=== PATIENT | female | born 1990 | race Native Hawaiian/Other Pacific Islander ===

== ENCOUNTER 2018-08-27 17:52 | Emergency (ER) | payer OTHER ==
[2018-08-27] MEDS ORDERED: Lactated Ringer's 1,000 ML IV SCH (18:45)
[2018-08-27 18:50] VITALS: BMI 32.7
[2018-08-27 18:53] LABS: HEMOGLOBIN 12.2 g/dL (12.0-16.0); MEAN CELL VOLUME 84.2 fl (81.0-99.0); MEAN CORPUSCULAR HEMOGLOBIN 27.7 pg (27.0-31.0); MEAN CORPUSCULAR HGB CONC 32.9 g/dL (33.0-37.0); RBC 4.41 Mil/uL (3.80-5.20); RED CELL DISTRIBUTION WIDTH 13.9 % (11.5-14.5); WHITE BLOOD COUNT 13.2 K/uL (4.8-10.8)
[2018-08-27 19:04] LABS: ALB/GLOB RATIO 1.1 (1.0-2.1); ALBUMIN 3.9 g/dL (3.5-5.0); ALT/SGPT 16 U/L (9-52); AST/SGOT 20 U/L (14-36); BLOOD UREA NITROGEN 11 mg/dl (7-17); GFR NON-AFRICAN AMERICAN > 60
--- NOTE | 2018-08-27 21:11 | OBHP ---
Datetime: 08/27/2018 18:34 IP Adm Impression: , intrauterine IP Chief Complaint Other: Abd pain+ vomiting IP Admit Plan: Observation/Evaluation; Discharge home Admit Comment, IP Provider: 28 yo f 30.4wk due date 11/01/18 present to [facility] due to Nausea v omiting and abd pain that started today morning. Patient report since morning after she ate a soup sh e start having constant vomiting for more than 10 time today last vomit was 15 min before presenting to hospital, along the day she start having some abdominal pain that feel like contractions located i n mid abdomen. Patient denies any sick contact, or having these symptoms previously. Otherwise patien t report good movement, denies vag bleed, contraction or water gush. Pt denies fever, chills, chest pain, sob, diarrhea, dysuria or polyuria. PCP: Dr. Gipson Allergy none Med: PNV PMH: none PSH:None OBGYN: 2 prev NVD with no complication PFH: Dad had stroke, mom healthy Social Denies smoke drink or drug use 18:30 Assessment and plan 28 yo f 30.4wk due date 11/01/18 present to [facility] due to Nausea vomiting and abd pain that started today morning. Pt vitals WNL No contraction as per tocometer monitor reassuring PE: BS+ nontender Cervix Closed long WIll start on LR 1L at 999 Zofran 4mg IV once for nausea Will send for CBC and CMP [facility]Sab[facility] PGY1 OB Hospitalist Addendum: Pt seen and examined by me. Agree w/ above. 28 yo at 30+4 wks c /o vomiting after eating noodles this am, then developed abdominal pain on and off. FHT reactive. P t given IV fluid for hydration and IV zofran. Pt felt better and wanted to go home. Pt discharged h ome and told to f/u w/ Dr. Gipson next week. (ES) Pelvic Type - PN: Adequate Extremities - PN: Normal Abdomen - PN: Normal Back - PN: Not Done Breast - PN: Normal Lungs - PN: Normal Heart - PN: Normal Thyroid - PN: Normal Neurologic - PN: Normal HEENT - PN: Normal General - PN: Normal FHR - Baseline A Provider: 150 Comments, ACOG Physical Exam: Heart s1 s2 heard no extra heart sound lung clear abd BS+, Nontender to palpate Cervix Long closed Gestation - Est Wks by US: 30.4 EGA AdmitDate IP: 30.4 Vital Signs Provider: Reviewed; Within Normal Limits IP Chief Complaint: Maternal discomfort NICHD Variability Prov Fetus A: Moderate 6-25bpm NICHD Accel Fetus A IP Provider: [id number] NICHD Decel Fetus A IP Provider: None Dilatation, Provider: 0 Effacement, Provider: 0 Station, Provider: -3 Genitourinary Exam: Normal DTRs - PN: Not Done
--- NOTE | 2018-08-27 21:13 | OBDCSUM ---
Datetime: 08/27/2018 20:00 Discharged to, Provider: Home Follow up at, Provider: Dr. Gipson Disch Instr Activity: Normal activity Disch Instr Diet: Regular Discharge Time: 08/27/2018 20:04 Follow up in weeks, Provider: , 09/01/2018 Disch Referrals: None Discharge Diagnosis Prov Other: nausea and abdominal pain at 30+weeks
[2018-08-28 01:26] VITALS: BP 107/58; PULSE 108; RESP 20; TEMP 98.6; O2SAT 98
== END 2018-08-27 21:00 | disposition home or self-care (01) ==
LOC: H.EROB2 17:52
DX: O21.0 Mild hyperemesis gravidarum (principal); O26.93 Pregnancy related conditions, unspecified, third trimester; R10.2 Pelvic and perineal pain; Z3A.30 30 weeks gestation of pregnancy
CPT/HCPCS: 80053; 85027; 96374; 99283; J2405